=== PATIENT | female | born 2000 | race African-American/Black ===

== ENCOUNTER → 2018-06-29 08:54 | Outpatient (CLI) | payer MEDICAID, SELFPAY ==
[2018-06-29 09:24] LABS: Basophils % 0.5 % (0.1-2.0); Eosinophils # 0.2 K/mm3 (0.0-0.4); Eosinophils % 3.4 % (0.1-12.0); Hematocrit 41.8 % (37.0-47.0); Hemoglobin 14.2 g/dL (12.2-16.2); Lymphocytes # 2.2 K/mm3 (0.7-4.5); Lymphocytes % 44.2 K/mm3 (10-50); Mean Corpuscular HGB Conc 33.8 g/dL (31.8-35.4); Mean Corpuscular Hemoglobin 30.5 pg (27.0-31.2); Mean Corpuscular Volume 90.1 fl (81-99); Mean Platelet Volume 7.2 fl (7.4-10.4); Monocytes # 0.3 K/mm3 (0.1-1.0); Monocytes % 6.3 % (1.7-9.3); Neutrophils # 2.2 K/mm3 (1.8-7.8); Neutrophils % 45.6 % (37.0-80.0); Platelet Count 254 K/mm3 (142-424); Red Blood Count 4.64 M/mm3 (4.20-5.40); Red Cell Distribution Width 12.2 % (11.5-17.5); White Blood Count 4.9 K/mm3 (4.5-13.0)
[2018-06-29 11:05] LABS: Alanine Aminotransferase 16 U/L (12-78); Albumin Level 4.2 gm/dL (3.4-5.0); Albumin/Globulin Ratio 1.2 (1.1-1.8); Alkaline Phosphatase 79 U/L (46-116); Anion Gap 11.2 mEq/L (5-15); Aspartate Amino Transferase 11 U/L (15-37); Bilirubin,Total 0.3 mg/dL (0.2-1.0); Blood Urea Nitrogen 7 mg/dL (7-18); Calcium 9.3 mg/dL (8.5-10.1); Carbon Dioxide 28 mmol/L (21.0-32.0); Chloride 110 mmol/L (98-107); Creatinine,Serum 0.68 mg/dL (0.55-1.02); Estimated Glomerular Filt Rate 111 ml/min (>60); GFR (African American) 135 ML/MIN (>60); Globulin 3.4 gm/dl (1.3-3.2); Glucose 73 mg/dL (74-106); Potassium 4.2 mmoL/L (3.5-5.1); Sodium 145 mmol/L (136-145); T4 (Thyroxine) 8.1 ug/dl (5.4-10.6); Thyroid Stimulating Hormone 1.72 uIU/ml (0.516-4.13); Total Protein,Serum 7.6 gm/dL (6.4-8.2)
--- NOTE | 2018-06-29 12:35 | XR_ITS ---
XR wrist LT 2V HISTORY cyst on wrist which is increasing in size ITS.REASON: cyst on wrist ORDERING PHYSICIAN: Evon Pisano PATIENT AGE: 17 years Comparison: None FINDINGS: No fracture or dislocation. No lytic or blastic change. There is normal mineralization.. The joint spaces are well-preserved. No significant degenerative/arthritic changes. No erosive changes evident.. IMPRESSION: Negative wrist, consider MRI without and with contrast for further evaluation for soft tissue abnormality
== END ==
PROVIDERS: PCP Nurse Practitioner Family; Visit Provider Nurse Practitioner Family
DX: F32.9 Major depressive disorder, single episode, unspecified (principal); M67.439 Ganglion, unspecified wrist
CPT/HCPCS: 36415; 73100; 80053; 84436; 84443; 85025

== ENCOUNTER 2019-01-26 11:19 | Emergency (ER) | payer MEDICAID, SELFPAY ==
[2019-01-26 11:30] VITALS: BP 123/67; PULSE 57; RESP 16; TEMP 36.6; O2SAT 99; BMI 21.9
[2019-01-26 11:50] VITALS: BP 129/57; PULSE 68; O2SAT 99
--- NOTE | 2019-01-26 11:56 | CT_ITS ---
CT head/brain wo con HISTORY: . At left temporal area 2 days ago with headache and nausea ITS.REASON: head injury ORDERING PHYSICIAN: Alberto Zambrano MD PATIENT AGE: 18 years COMPARISON: No previous studies TECHNIQUE: Axial images obtained without contrast. Brain and bone windows reviewed. All CT scans at the facility use one or more dose reduction, viz: automated exposure control, ma/kV adjustment per patient size (including targeted exams where dose is matched to indication, i.e. head), or iterative reconstruction technique. FINDINGS: No acute intracranial findings. Negative CT brain/head No midline shift, mass effect, intracranial hemorrhage, hydrocephalus, or extra-axial fluid collection is evident. The posterior fossa is unremarkable.. The calvarium has an unremarkable appearance. region of the left mormon & left l temporal fossa with no significant findings by CT. The mastoid air cells are well developed and clear bilaterally. No mastoid effusion. Middle ears clear . The visualized portions of paranasal sinuses are clear. No sinus air-fluid levels.. Adenoidal hypertrophy noted on lasting room machine operator view typical of age IMPRESSION: Negative CT head without contrast. No acute finding
--- NOTE | 2019-01-26 12:04 | HMH.EDGENADL ---
ED Disposition Clinical Impression: Concussion without loss of consciousness Qualifiers: Encounter type: initial encounter Qualified Code(s): S06.0X0A - Concussion without loss of consciousness, initial encounter Disposition: Home, Self-Care Condition on Discharge: Good Instructions: DI for Concussion Additional Instructions: Ibuprofen for pain. Zofran for nausea. Additional instructions for HEAD INJURY: See your physician as soon as possible for further evaluation. Return immediately if severe headache, vomiting, problems with vision or speech, numbness or weakness of the extremities, or severe neck pain. Prescriptions: Ibuprofen [Ibuprofen 600mg Tab] 600 mg PO Q6HP PRN #20 tab PRN Reason: Moderate Pain Ondansetron [Zofran 4mg ODT] 4 mg PO TIDP PRN #10 tab.rapdis PRN Reason: Nausea And Vomiting Referrals: Umang Santiago MD [Primary Care Provider] - - Critical Care Critical Care Time: No Attestation: On , the high probability of a clinically significant, sudden or life threatening deterioration of the following system(s) required my full and direct attention, intervention and personal management. The time I documented below is in addition to time spent performing reported procedures but includes the following listed in this critical care notation. Medical Decision Making - Michael Inquiry Pt receiving controlled substance: No Vital Signs: 01/26/19 11:30 01/26/19 11:50 01/26/19 12:39 Temperature 98 F Temperature Source Oral Pulse Rate [Left Radial] 57 L 68 60 Respiratory Rate 16 Blood Pressure [Right Arm] 123/67 129/57 L 121/60 Blood Pressure Mean [Right Arm] 85 81 80 Blood Pressure Source [Right Arm] Automatic Cuff Blood Pressure Position [Right Arm] Sitting 02 Sat by Pulse Oximetry 99 99 95 Oxygen Delivery Method Room Air 01/26/19 13:00 Temperature Temperature Source Pulse Rate [Left Radial] 52 L Respiratory Rate Blood Pressure [Right Arm] 121/70 Blood Pressure Mean [Right Arm] 87 Blood Pressure Source [Right Arm] Blood Pressure Position [Right Arm] 02 Sat by Pulse Oximetry 98 Oxygen Delivery Method - CT Data CT Scan: Head Time Received: 13:[address] Reviewed: Yes: I have viewed the radiologist's interpretation Preliminary Findings: Normal/NAD General Adult HPI - General Chief complaint: Head Injury Stated complaint: AO [id number] hit in head by box ,confused Time Seen by Provider: 01/26/19 12:00 Mode of Arrival: Ambulatory Limitations: No Limitations Description of Symptoms (Recalled from ER Triage Doc. by RN): to ed per pvt car pt states 2 days ago a box fan fell off dresser hitting her head c/o pain lt temporal area and posterior neck pt states I really don't remember anything 2 days ago except getting hit in the head pt denies any LOC. +nausea, +headache pt alert and oriented x 4. cpta tylenol lastnight - History of Present Illness HPI narrative: 2 days ago a big box fell and hit her in the left mormonism. Has had headaches in that area since, but this morning the pain is more severe and it radiates through to the right side of her head as well. She feels foggy headed. It feels like a migraine, states she has had migraines about once a year, is not on any treatment for migraines. No vomiting or visual disturbance. No numbness or weakness. No neck pain. She took Tylenol for the pain. - Related Data Home Medications Medication Instructions Recorded Confirmed albuterol sulfate HFA 90 2 puff INHALATION Q6H PRN 06/28/18 07/19/18 mcg/actuation aerosol inhaler aripiprazole 2 mg tablet 2 mg PO DAILY 06/28/18 07/19/18 paroxetine 10 mg tablet 10 mg PO DAILY 06/28/18 07/19/18 trazodone 50 mg tablet 50 mg PO DAILY 06/28/18 07/19/18 Previous Rx's Medication Instructions Recorded Brompheniramine/Pseudoephed/Dm 10 ml PO QID PRN #240 ml 08/11/18 [Bromfed DM Cough Syrup 5mL] Ibuprofen [Ibuprofen 600mg Tab] 600 mg PO Q6HP PRN #20 tab 01/26/19
--- NOTE | 2019-01-26 12:07 | ED_ITS ---
ED Disposition Clinical Impression: Concussion without loss of consciousness Qualifiers: Encounter type: initial encounter Qualified Code(s): S06.0X0A - Concussion without loss of consciousness, initial encounter Disposition: Home, Self-Care Condition on Discharge: Good Instructions: DI for Concussion Additional Instructions: Ibuprofen for pain. Zofran for nausea. Additional instructions for HEAD INJURY: See your physician as soon as possible for further evaluation. Return immediately if severe headache, vomiting, problems with vision or speech, numbness or weakness of the extremities, or severe neck pain. Prescriptions: Ibuprofen [Ibuprofen 600mg Tab] 600 mg PO Q6HP PRN #20 tab PRN Reason: Moderate Pain Ondansetron [Zofran 4mg ODT] 4 mg PO TIDP PRN #10 tab.rapdis PRN Reason: Nausea And Vomiting Referrals: Umang Santiago MD [Primary Care Provider] - - Critical Care Critical Care Time: No Attestation: On , the high probability of a clinically significant, sudden or life threatening deterioration of the following system(s) required my full and direct attention, intervention and personal management. The time I documented below is in addition to time spent performing reported procedures but includes the following listed in this critical care notation. Medical Decision Making - Michael Inquiry Pt receiving controlled substance: No Vital Signs: 01/26/19 11:30 01/26/19 11:50 01/26/19 12:39 Temperature 98 F Temperature Source Oral Pulse Rate [Left Radial] 57 L 68 60 Respiratory Rate 16 Blood Pressure [Right Arm] 123/67 129/57 L 121/60 Blood Pressure Mean [Right Arm] 85 81 80 Blood Pressure Source [Right Arm] Automatic Cuff Blood Pressure Position [Right Arm] Sitting 02 Sat by Pulse Oximetry 99 99 95 Oxygen Delivery Method Room Air 01/26/19 13:00 Temperature Temperature Source Pulse Rate [Left Radial] 52 L Respiratory Rate Blood Pressure [Right Arm] 121/70 Blood Pressure Mean [Right Arm] 87 Blood Pressure Source [Right Arm] Blood Pressure Position [Right Arm] 02 Sat by Pulse Oximetry 98 Oxygen Delivery Method - CT Data CT Scan: Head Time Received: 13:[address] Reviewed: Yes: I have viewed the radiologist's interpretation Preliminary Findings: Normal/NAD General Adult HPI - General Chief complaint: Head Injury Stated complaint: AO [id number] hit in head by box ,confused Time Seen by Provider: 01/26/19 12:00 Mode of Arrival: Ambulatory Limitations: No Limitations Description of Symptoms (Recalled from ER Triage Doc. by RN): to ed per pvt car pt states 2 days ago a box fan fell off dresser hitting her head c/o pain lt temporal area and posterior neck pt states I really don't remember anything 2 days ago except getting hit in the head pt denies any LOC. +nausea, +headache pt alert and oriented x 4. cpta tylenol lastnight - History of Present Illness HPI narrative: 2 days ago a big box fell and hit her in the left holiness. Has had headaches in that area since, but this morning the pain is more severe and it radiates through to the right side of her head as well. She feels foggy headed. It feels like a migraine, states she has had migraines about once a year, is not on any treatment for migraines. No vomiting or visual disturbance. No numbness or weakness. No nec
--- NOTE | 2019-01-26 12:19 | PC.NURSE ---
pt gone to xray
--- NOTE | 2019-01-26 12:34 | PC.NURSE ---
pt back from xray
[2019-01-26 12:39] VITALS: BP 121/60; PULSE 60; O2SAT 95
[2019-01-26 13:00] VITALS: BP 121/70; PULSE 52; O2SAT 98
[2019-01-26 13:31] VITALS: BP 112/74; PULSE 78; RESP 16; TEMP 36.6; O2SAT 99
== END 2019-01-26 13:33 | disposition home or self-care (01) ==
PROVIDERS: Emergency Provider Emergency Medicine; PCP Emergency Medicine
DX: S06.0X0A Concussion without loss of consciousness, initial encounter (principal); F17.210 Nicotine dependence, cigarettes, uncomplicated; F12.10 Cannabis abuse, uncomplicated; W20.8XXA Other cause of strike by thrown, projected or falling object, initial encounter; Y92.019 Unspecified place in single-family (private) house as the place of occurrence of the external cause
CPT/HCPCS: 70450; 96372; 99283; J2405

== ENCOUNTER 2020-05-17 06:44 | Emergency (ER) | payer MEDICAID, SELFPAY ==
[2020-05-17 06:46] VITALS: BP 129/59; PULSE 72; RESP 16; TEMP 36.7; O2SAT 97; BMI 21.2
--- NOTE | 2020-05-17 07:02 | CT_ITS ---
PROCEDURE: CT ABDOMEN PELVIS W CON CLINICAL INDICATION: LLQ pain COMPARISON: No exams were available for comparison TECHNIQUE: IV Contrast: 75ML OPTIRAY 350 Oral Contrast 10ml Gastroview Axial images obtained with sagittal and coronal reformats. All CT scans at the facility use one or more dose reduction, viz: automated exposure control, ma/kV adjustment per patient size (including targeted exams where dose is matched to indication, i.e. head), or iterative reconstruction technique. FINDINGS: LOWER THORAX: There is a 4 mm subpleural nodule in the right middle lobe laterally nonspecific ABDOMEN & PELVIS: The spleen the spleen, adrenal glands, and pancreas have an unremarkable appearance. There are some mild low-density changes in the periportal region of the liver suggesting some periportal edema. There is a small hypodensity in the right hepatic lobe at 4 mm and may be due to small cyst. No radiopaque gallstones. No renal or ureteral calculi. No hydronephrosis. No intestinal obstruction or free air. No evidence of appendicitis. There is a mild amount of free fluid in the pelvis. There appears to be a 1.6 cm left ovarian cyst. No evidence of abscess or focal inflammatory change. The urinary bladder is mildly distended. No acute bony anomalies. IMPRESSION: 1. There is a mild amount of free fluid in the pelvis. There is mild distention of the urinary bladder. There is suspected 1.6 cm left ovarian cyst. 2. Nonspecific low-density changes in the periportal region of the liver which could be due to mild periportal edema. Please correlate with clinical parameters. Dictated b Dmitriy Novak MD 05/17/2020 10:12 Dmitriy Novak MD in [facility] 05/17/2020 10:12
[2020-05-17 07:09] LABS: Microscopic, Urine URINE MICROSCOPIC (MICROSCOPIC)
[2020-05-17 07:11] LABS: Appearance,Urine CLEAR (Clear); Bilirubin,Urine Negative (Negative); Blood, Urine 2+ (Negative); Color,Urine YELLOW (Yellow); Glucose,Urine (UA) Negative (Negative); Ketones,Urine Negative (Negative); Leukocyte Esterase,Urine Negative (Negative); Nitrate,Urine Negative (Negative); Protein,Urine Negative (Negative); Specific Gravity, Urine 1.025 (1.005-1.030); Urobilinogen,Urine 0.2 EU/dl (0.2)
[2020-05-17 07:13] LABS: Basophils % 0.5 % (0.1-2.0); Eosinophils # 0.2 K/mm3 (0.0-0.4); Eosinophils % 3.5 % (0.1-12.0); Hematocrit 41.4 % (37.0-47.0); Hemoglobin 14.7 g/dL (12.2-16.2); Lymphocytes # 2.2 K/mm3 (0.7-4.5); Mean Corpuscular HGB Conc 35.5 g/dL (31.8-35.4); Mean Corpuscular Volume 93.1 fl (81-99); Mean Platelet Volume 7.9 fl (7.4-10.4); Monocytes # 0.3 K/mm3 (0.1-1.0); Monocytes % 5.7 % (1.7-9.3); Neutrophils # 2.6 K/mm3 (1.8-7.8); Neutrophils % 49.4 % (37.0-80.0); Platelet Count 203 K/mm3 (142-424); Red Blood Count 4.44 M/mm3 (4.20-5.40); Red Cell Distribution Width 12.7 % (11.5-17.5); Urine Pregnancy, HCG Qual. Negative (Negative); White Blood Count 5.3 K/mm3 (4.8-10.8)
[2020-05-17 07:14] LABS: Chloride 109 mmol/L (98-107); Potassium 3.7 mmoL/L (3.5-5.1); Sodium 143 mmol/L (136-145)
[2020-05-17 07:17] LABS: Alanine Aminotransferase 11 U/L (12-78); Albumin Level 4.5 g/dl (3.5-5.0); Albumin/Globulin Ratio 1.5 (1.1-1.8); Alkaline Phosphatase 56 U/L (38-126); Amylase 72 U/L (30-110); Anion Gap 13.7 mEq/L (5-15); Aspartate Amino Transferase 22 U/L (14-36); Bilirubin,Total 0.5 mg/dl (0.2-1.3); Blood Urea Nitrogen 8 mg/dl (7-17); Calcium 9.5 mg/dl (8.4-10.2); Carbon Dioxide 24 mmol/L (22.0-30.0); Creatinine Clearance Estimated 116 mL/min (50-200); Estimated Glomerular Filt Rate 126 ml/min (>60); GFR (African American) 153 ML/MIN (>60); Glucose 96 mg/dl (74-100); Total Protein,Serum 7.5 g/dl (6.3-8.2)
[2020-05-17 07:26] LABS: Squamous Epithelial Cell,Urine Occasional #/hpf (0-5)
[2020-05-17 07:34] LABS: Lipase 61 U/L (23-300)
--- NOTE | 2020-05-17 07:35 | PC.NURSE ---
Pt finished contrast @ 0109 notified rad
[2020-05-17 07:46] VITALS: BP 117/63; PULSE 68; RESP 20; O2SAT 99
--- NOTE | 2020-05-17 08:28 | HMH.EDGENADL ---
ED Disposition Clinical Impression: Left lower quadrant abdominal pain Disposition: Home, Self-Care Condition on Discharge: Good Instructions: DI for Acute Abdomen Additional Instructions: Follow-up this week for your ultrasound. If you have any new, changing, worsening, or concerning symptoms, come back to the emergency department. Referrals: Alonzo Mabry MD [Primary Care Provider] - Time of Disposition: 08:35 - Critical Care Critical Care Time: No Attestation: On 05/17/20, the high probability of a clinically significant, sudden or life threatening deterioration of the following system(s) required my full and direct attention, intervention and personal management. The time I documented below is in addition to time spent performing reported procedures but includes the following listed in this critical care notation. Medical Decision Making - Medical Records Medical records reviewed: Yes: I reviewed the patient's medical records. MR Comment: 19-year-old female with history of possible ovarian cyst presents to the emergency department with left lower quadrant abdominal pain. He arrives to the ED hemodynamically stable, with reassuring vital signs, and looks well on exam. She was resting comfortably on my evaluation. She was previously told that she may have small ovarian cysts during her visit to [facility]. Given the history and physical, I doubt intermittent torsion, but this is considered. She has not had any vaginal bleeding or discharge, also considered. Will get labs including test and urine and CT of her abdomen pelvis and reassess. On reevaluation, patient remains well. She is continued to be pain-free during the entirety of her stay here. CT personally reviewed and read by radiology and shows a 1-1.5 centimeter cyst. Her labs are personally reviewed and nonactionable. No other worrisome signs on her CT that would warrant an ultrasound at this time I advised that she follow-up for her further evaluation. She was given strict return precautions and discharge instructions and verbalized an understanding and agreement to the plan. Safe to discharge. - Michael Inquiry Pt receiving controlled substance: No Vital Signs: 05/17/20 06:46 05/17/20 07:46 05/17/20 09:00 Temperature 98.1 F Temperature Source Oral Pulse Rate [Left Radial] 72 68 65 Respiratory Rate 16 20 17 Blood Pressure [Right Arm] 129/59 L 117/63 114/72 Blood Pressure Mean [Right Arm] 82 81 86 Blood Pressure Source [Right Arm] Automatic Cuff Automatic Cuff Blood Pressure Position [Right Arm] Sitting Sitting 02 Sat by Pulse Oximetry 97 99 100 Oxygen Delivery Method Room Air Room Air - Lab Data Lab Results 05/17/20 07:00: Urine Color Yellow, Urine Appearance Clear, Urine pH 6.0, Ur Specific [place] 1.025, Urine Protein Negative, Urine Glucose (UA) Negative, Urine Ketones Negative, Urine Blood 2+, Urine Nitrate Negative, Urine Bilirubin Negative, Urine Urobilinogen 0.2, Ur Leukocyte Esterase Negative, Urine RBC 5-10, Urine WBC 3-5, Ur Squamous Epith Cells Occasional 05/17/20 07:00: WBC 5.3, RBC 4.44, Hgb 14.7, Hct 41.4, MCV 93.1, MCH 33.0 H, MCHC 35.5 H, RDW 12.7, Plt Count 203, MPV 7.9, Neut % (Auto) 49.4, Lymph % (Auto) 41.0, [place] % (Auto) 5.7, Eos % (Auto) 3.5, Baso % (Auto) 0.5, Neut # (Auto) 2.6, Lymph # (Auto) 2.2, [place] # (Auto) 0.3, Eos # (Auto) 0.2, Baso # (Auto) 0.0 05/17/20 07:00: Urine HCG, Qual Negative 05/17/20 07:00: Sodium 143, Potassium 3.7, Chloride 109 H, Carbon Dioxide 24, Anion Gap 13.7, BUN 8, Creatinine 0.60, Estimated Creat Clear 116, Estimated GFR 126, Est GFR ( Amer) 153, Glucose 96, Calcium 9.5, Total Bilirubin 0.5, AST 22, ALT 11 L, Alkaline Phosphatase 56, Total Protein 7.5, Albumin 4.5, Globulin 3.0, Albumin/Globulin Ratio 1.5, Amylase 72 05/17/20 07:00: Lipase 61 Result diagrams: 05/17/20 07:00 05/17/20 07:00 Orders (Tests/Meds): ED MEDICATIONS Discontinued Medica
[2020-05-17 09:00] VITALS: BP 114/72; PULSE 65; RESP 17; O2SAT 100
--- NOTE | 2020-05-17 09:07 | PC.NURSE ---
Pt to CT
[2020-05-17 10:42] VITALS: BP 112/65; PULSE 69; RESP 16; TEMP 36.9; O2SAT 99
== END 2020-05-17 10:44 | disposition home or self-care (01) ==
PROVIDERS: Emergency Medicine; Emergency Provider Emergency Medicine; PCP Emergency Medicine
DX: R10.32 Left lower quadrant pain (principal); F41.8 Other specified anxiety disorders; J45.909 Unspecified asthma, uncomplicated; F17.210 Nicotine dependence, cigarettes, uncomplicated; F12.10 Cannabis abuse, uncomplicated
CPT/HCPCS: 74177; 80053; 81001; 81025; 82150; 83690; 85025; 96365; 96375; 99283; J2405; Q9967

== ENCOUNTER 2020-06-03 13:28 | Emergency (ER) | payer MEDICAID, SELFPAY ==
[2020-06-03 13:43] VITALS: BP 108/66; PULSE 60; RESP 20; TEMP 36.8; O2SAT 98; BMI 21.4
--- NOTE | 2020-06-03 14:08 | HMH.EDUTC ---
[facility] [place] Clinical Impression: Sinusitis Qualifiers: Sinusitis location: unspecified location Chronicity: acute Recurrence: non-recurrent Qualified Code(s): J01.90 - Acute sinusitis, unspecified Otitis media Qualifiers: Otitis media type: suppurative Chronicity: acute Laterality: bilateral Recurrence: non-recurrent Spontaneous tympanic membrane rupture: without spontaneous rupture Qualified Code(s): H66.003 - Acute suppurative otitis media without spontaneous rupture of ear drum, bilateral Disposition: Home, Self-Care Condition on Discharge: Good Instructions: DI for Sinusitis Additional Instructions: Drink plenty of fluids. Take tylenol or ibuprofen for pain or fever. Take the medications as directed. Follow up with your regular doctor. GO TO THE ER FOR ANY WORSENING SYMPTOMS Prescriptions: Brompheniramine/Pseudoephed/Dm [Bromfed Dm Cough Syrup] 5 ml PO Q6HP PRN #240 syrup PRN Reason: Cough Transmission Status: Received by [facility] predniSONE [Deltasone 10mg tablet] 10 mg PO BID 3 Days #6 tab Transmission Status: Received by [facility] Azithromycin [Z-Charlie 250mg Tab*] 250 mg PO UD DOSE PK #6 tab Transmission Status: Received by [facility] Referrals: Alonzo Mabry MD [Primary Care Provider] - Forms: Work/School Release Time of Disposition: 14:17 Medical Decision Making - Medical Records Medical records reviewed: No: I reviewed the patient's medical records. - Michael Inquiry Pt receiving controlled substance: No Vital Signs: 06/03/20 13:43 06/03/20 14:18 Temperature 98.2 F 98.2 F Temperature Source Oral Pulse Rate 60 Pulse Rate [Left Brachial] 60 Respiratory Rate 20 20 Blood Pressure 108/66 L Blood Pressure [Left Arm] 108/66 L Blood Pressure Mean [Left Arm] 80 Blood Pressure Source [Left Arm] Automatic Cuff Blood Pressure Position [Left Arm] Sitting 02 Sat by Pulse Oximetry 98 Oxygen Delivery Method Room Air [facility] [place] - General Stated complaint: sinus pressure ear pain Time Seen by Provider: 06/03/20 14:08 Mode of Arrival: Ambulatory Source of Information: Patient Limitations: No Limitations Description of Symptoms (Recalled from Triage Doc. by RN): PATIENT C/O SINUS PRESSURE, BILATERAL EAR PAIN AND HEADACHE X 1 WEEK HEENT Symptoms (Recalled from RN notes): Yes Resp Symptoms (Recalled from RN notes): No Skin Symptoms (Recalled from RN notes): No MS Symptoms (Recalled from RN notes): No Functional Status (Recalled from RN notes): WNL - History of Present Illness Provider Complaint: She c/o 1 week of worsening right ear pain and pressure and sinus congestion. She denies any fever or chills. She denies any known exposure to COVID-19. - Related Data Previous Rx's Medication Instructions Recorded Azithromycin [Z-Charlie 250mg Tab*] 250 mg PO UD DOSE PK #6 tab 06/03/20 Brompheniramine/Pseudoephed/Dm 5 ml PO Q6HP PRN #240 syrup 06/03/20 [Bromfed Dm Cough Syrup] predniSONE [Deltasone 10mg tablet] 10 mg PO BID 3 Days #6 tab 06/03/20 Allergies Allergy/AdvReac Type Severity Reaction Status Date / Time Penicillins [PENICILLINS] Allergy Unknown Verified 02/27/19 05:11 - Worker's Comp Is this a Worker's Comp case?: No [facility] History - Hepatitis A Screen Drug use history?: No High risk sexual behaviors?: No History of sexually transmitted infection?: No Currently employed?: No Childcare worker?: No Do you have indoor plumbing?: Yes Do you have electricity?: Yes Attestation statement:: This patient has been screened for Hepatitis A risk factors. I have reviewed the patient's past medical history: Yes Medical History: Reports:: Anxiety, Asthma, Depression Denies:: Cancer, Diabetes Mellitus Type 1, Diabetes Mellitus Type 2, MRSA Comment: ANXIETY. DEPRESSION Laterality Cases: Bilateral: Tonsillectomy Other Surgeries: Yes: EGD, Other Amputation: No Fractures: Yes (LEFT FOOT) Comment: TONSILX---2010. WISDOM TEETH REMOV
[2020-06-03 14:18] VITALS: BP 108/66; PULSE 60; RESP 20; TEMP 36.8; O2SAT 98
== END 2020-06-03 14:20 | disposition home or self-care (01) ==
PROVIDERS: Emergency Provider Nurse Practitioner Family; PCP Emergency Medicine
DX: J01.90 Acute sinusitis, unspecified (principal); H66.003 Acute suppurative otitis media without spontaneous rupture of ear drum, bilateral; F41.8 Other specified anxiety disorders; J45.909 Unspecified asthma, uncomplicated; F17.210 Nicotine dependence, cigarettes, uncomplicated; Z88.0 Allergy status to penicillin
CPT/HCPCS: 99201

== ENCOUNTER 2020-10-27 09:03 | Emergency (ER) | payer MEDICAID, SELFPAY ==
[2020-10-27 09:15] VITALS: BP 113/70; PULSE 58; RESP 14; TEMP 36.7; O2SAT 97; BMI 21.4
[2020-10-27 09:24] LABS: UTC Pregnancy Test, Urine Negative (Negative)
[2020-10-27 09:43] VITALS: BP 113/70; PULSE 58; RESP 14; TEMP 36.7; O2SAT 97
--- NOTE | 2020-10-27 09:47 | HMH.EDUTC ---
[facility] [place]ression: Negative test Disposition: Home, Self-Care Condition on Discharge: Good Instructions: Home and Clinic Tests Additional Instructions: If you do not have your period in the next week make sure to test again because you may have tested early REturn if needed Straight to ER if any life threatening symptoms Follow up with your Family doctor if needed Referrals: Alonzo Mabry MD [Primary Care Provider] - As needed Time of Disposition: 09:49 Medical Decision Making - Michael Inquiry Pt receiving controlled substance: No Michael was queried for this patient: No Vital Signs: 10/27/20 09:15 Temperature 98.1 F Temperature Source Oral Pulse Rate [Left Brachial] 58 L Respiratory Rate 14 Blood Pressure [Left Arm] 113/70 Blood Pressure Mean [Left Arm] 84 Blood Pressure Source [Left Arm] Automatic Cuff Blood Pressure Position [Left Arm] Sitting 02 Sat by Pulse Oximetry 97 Oxygen Delivery Method Room Air - Lab Data Lab Results 10/27/20 09:23: [facility]st Clinic Negative Medical Decision Narrative: Discussed with patient about blood test and she declined states that if she didnt start soon she would return for blood test [facility] [place] - General Stated complaint: test Time Seen by Provider: 10/27/20 09:47 Mode of Arrival: Ambulatory Source of Information: Patient Limitations: No Limitations Description of Symptoms (Recalled from Triage Doc. by RN): PATIENT REQUESTING TEST. LAST PERIOD WAS 09/29 HEENT Symptoms (Recalled from RN notes): No Resp Symptoms (Recalled from RN notes): No Skin Symptoms (Recalled from RN notes): No MS Symptoms (Recalled from RN notes): No Functional Status (Recalled from RN notes): WNL - History of Present Illness Provider Complaint: Bety states that she is a couple days late on her period and she took a home and thought she saw a faint line so she come in wanting a urine test - Related Data Allergies Allergy/AdvReac Type Severity Reaction Status Date / Time Penicillins [PENICILLINS] Allergy Unknown Verified 02/27/19 05:11 - Worker's Comp Is this a Worker's Comp case?: No [facility] History - Hepatitis A Screen Drug use history?: No High risk sexual behaviors?: No History of sexually transmitted infection?: No Currently employed?: No Childcare worker?: No Do you have indoor plumbing?: Yes Do you have electricity?: Yes Attestation statement:: This patient has been screened for Hepatitis A risk factors. I have reviewed the patient's past medical history: Yes Medical History: Reports:: Anxiety, Asthma, Depression Denies:: Cancer, Diabetes Mellitus Type 1, Diabetes Mellitus Type 2, MRSA Comment: ANXIETY. DEPRESSION Laterality Cases: Bilateral: Tonsillectomy Other Surgeries: Yes: EGD, Other Amputation: No Fractures: Yes (LEFT FOOT) Comment: TONSILX---2010. WISDOM TEETH REMOVAL--2016 - Social History Smoking Status: Current every day smoker Tobacco Type: cigarettes # Packs/Day (cigarettes): 1 Alcohol Intake: never Alcohol Intake Frequency:: other Substance Use Type: marijuana Occupational Status: other Housing: house - Psychiatric History Pschychiatric History:: Reports:: Anxiety, Depression Family Hx:: No significant family history MARKETING OPERATIONS COORDINATOR history: Non-contributory, No MARKETING OPERATIONS COORDINATOR history ROS Obtained: Yes All systems reviewed & no additional complaints, Yes Systems reviewed as appropriate & no additional complaints - Constitutional Constitutional: Reports system reviewed and no additional complaints, except as docu - ENT Ears, Nose, Mouth, and Throat: Reports system reviewed and no additional complaints, except as docu - Cardiovascular Cardiovascular: Reports system reviewed and no additional complaints, except as docu - Respiratory Respiratory: Reports system reviewed and no additional complaints, except as docu - Gastrointestinal Gas
== END 2020-10-27 09:48 | disposition home or self-care (01) ==
PROVIDERS: Emergency Provider Nurse Practitioner; PCP Emergency Medicine
DX: N91.2 Amenorrhea, unspecified (principal); Z32.02 Encounter for pregnancy test, result negative; F41.8 Other specified anxiety disorders; F12.10 Cannabis abuse, uncomplicated; F17.210 Nicotine dependence, cigarettes, uncomplicated
CPT/HCPCS: 81025; 99202; G0463

== ENCOUNTER 2020-11-27 16:35 | Emergency (ER) | payer MEDICAID, SELFPAY ==
[2020-11-27 16:41] VITALS: BP 108/60; PULSE 60; RESP 16; O2SAT 98; BMI 21.4
--- NOTE | 2020-11-27 17:04 | HMH.EDUTC ---
[facility] [place] Disposition Clinical Impression: Gastroenteritis Disposition: Home, Self-Care Condition on Discharge: Good Instructions: Viral Gastroenteritis, DI for Viral Gastroenteritis -- Adult, Gastroenteritis Diet Additional Instructions: Drink plenty of fluids. Take tylenol for pain or fever. Take the medications as directed for nausea. Follow up with your regular doctor. GO TO THE ER FOR ANY WORSENING SYMPTOMS Prescriptions: Ondansetron [Zofran 4mg ODT] 4 mg PO Q8HP PRN #12 tab.rapdis PRN Reason: Nausea Transmission Status: Received by [facility] Referrals: PCP,No [Primary Care Provider] - Time of Disposition: 17:11 Medical Decision Making - Medical Records Medical records reviewed: No: I reviewed the patient's medical records. - Michael Inquiry Pt receiving controlled substance: No Vital Signs: 11/27/20 16:41 11/27/20 17:17 Temperature 98.2 F Temperature Source Oral Pulse Rate 65 Pulse Rate [Right] 60 Respiratory Rate 16 16 Blood Pressure 108/62 L Blood Pressure [Left Arm] 108/60 L Blood Pressure Mean [Left Arm] 76 Blood Pressure Source Automatic Cuff Blood Pressure Position Sitting 02 Sat by Pulse Oximetry 98 Oxygen Delivery Method Room Air Room Air [facility] [place] HPI - General Stated complaint: vomiting,no eating Time Seen by Provider: 11/27/20 17:05 Mode of Arrival: Ambulatory Source of Information: Patient Limitations: No Limitations Description of Symptoms (Recalled from Triage Doc. by RN): Pt c/o nausea since yesterday and then she has vomited twice today. HEENT Symptoms (Recalled from RN notes): No Resp Symptoms (Recalled from RN notes): No Skin Symptoms (Recalled from RN notes): No MS Symptoms (Recalled from RN notes): No Functional Status (Recalled from RN notes): naq - History of Present Illness Provider Complaint: She c/o n/v/d. Her symptoms began yesterday. She denies any fever/body ache/cough. She denies that she could be and she refuses a test. - Related Data Previous Rx's Medication Instructions Recorded Ondansetron [Zofran 4mg ODT] 4 mg PO Q8HP PRN #12 tab.rapdis 11/27/20 Allergies Allergy/AdvReac Type Severity Reaction Status Date / Time Penicillins [PENICILLINS] Allergy Unknown Verified 11/27/20 16:46 - Worker's Comp Is this a Worker's Comp case?: No [facility] History - Hepatitis A Screen Drug use history?: No High risk sexual behaviors?: No History of sexually transmitted infection?: No Currently employed?: No Childcare worker?: No Do you have indoor plumbing?: Yes Do you have electricity?: Yes Attestation statement:: This patient has been screened for Hepatitis A risk factors. I have reviewed the patient's past medical history: Yes Medical History: Reports:: Anxiety, Asthma, Depression Denies:: Cancer, Diabetes Mellitus Type 1, Diabetes Mellitus Type 2, MRSA Comment: ANXIETY. DEPRESSION Laterality Cases: Bilateral: Tonsillectomy Other Surgeries: Yes: EGD, Other Amputation: No Fractures: Yes (LEFT FOOT) Comment: TONSILX---2010. WISDOM TEETH REMOVAL--2016 - Social History Smoking Status: Current every day smoker Tobacco Type: cigarettes # Packs/Day (cigarettes): 1 Alcohol Intake: never Alcohol Intake Frequency:: other Substance Use Type: marijuana Occupational Status: other Housing: house - Psychiatric History Pschychiatric History:: Reports:: Anxiety, Depression Family Hx:: No significant family history RISK CONTROL DIRECTOR history: Non-contributory, No RISK CONTROL DIRECTOR history ROS Obtained: Yes All systems reviewed & no additional complaints - Constitutional Constitutional: Denies chills, Denies fever(s) - Eyes Eyes: Denies eye discharge - ENT Ears, Nose, Mouth, and Throat: Denies dizziness, Denies otalgia, Denies sore throat - Cardiovascular Cardiovascular: Denies chest pain - Respiratory Respiratory: Denies chest congestion, Denies cough - Gastrointestinal Gastrointestingal: Reports: a
[2020-11-27 17:17] VITALS: BP 108/62; PULSE 65; RESP 16; TEMP 36.8; O2SAT 98
== END 2020-11-27 17:17 | disposition home or self-care (01) ==
PROVIDERS: Emergency Provider Nurse Practitioner Family
DX: K52.9 Noninfective gastroenteritis and colitis, unspecified (principal); F41.8 Other specified anxiety disorders; Z88.0 Allergy status to penicillin
CPT/HCPCS: 99202; G0463

== ENCOUNTER 2022-06-15 16:21 | Emergency (ER) | payer OTHER, SELFPAY ==
[2022-06-15 18:13] VITALS: BP 110/76; PULSE 67; RESP 16; TEMP 37; O2SAT 97; BMI 24.3
--- NOTE | 2022-06-15 18:23 | EXP.UTC ---
Discharge Plan Disposition Patient Disposition: Home, Self-Care Condition: Good Prescriptions Prescriptions: New ondansetron 4 mg Tablet,Disintegrating 4 mg PO Q8H PRN (Reason: Nausea) Qty: 20 0RF benzonatate [benzonatate] 100 mg capsule 100 mg PO TIDP PRN (Reason: Cough) Qty: 30 0RF ondansetron 4 mg Tablet,Disintegrating 4 mg PO Q8H PRN (Reason: Nausea) Qty: 20 0RF No Action ondansetron 4 MG tablet,disintegrating 4 mg PO Q8HP PRN (Reason: Nausea) Qty: 12 0RF Referrals Follow up/Referrals: Provider,Referral, MD [Primary Care Provider] - See instructions Activity Restrictions/Add. Instructions Additional Instructions/Restrictions: Drink plenty of fluids. Take tylenol for pain or fever. Return if you begin to have difficulty breathing. Follow up with your regular doctor. GO TO THE ER FOR ANY WORSENING SYMPTOMS Quarantine until you know the results of your covid-19 test. Notify your school or workplace of your results and follow their instructions regarding return to work/school. Clinical Impressions Clinical Impression: Exposure to 2019 novel coronavirus Stand Alone Forms Stand Alone Forms: Work/School Release Instructions Patient Instructions: Coronavirus Disease 2019, Preventing the Spread of Coronavirus Discharge Instructions Discharge ED Provider: Jason Cronin [facility] General Stated complaint: covid test, exposed Mode of Arrival: Ambulatory Source of Information: Patient Limitations: No Limitations Time Seen by Provider: 06/15/22 18:23 Description of Symptoms (Recalled from Triage Doc. by RN): pt comes in for covid test. pt having no symptoms only exposure that happened yesterday HEENT Symptoms (Recalled from RN notes): No Resp Symptoms (Recalled from RN notes): No Skin Symptoms (Recalled from RN notes): No MS Symptoms (Recalled from RN notes): No Functional Status (Recalled from RN notes): n/a History of Present Illness Provider Complaint: She is here for a covid-19 test. She denies symptoms. Her significant other tested positive for covid-19 yesterday. Related Data Previous Rx's Medication Instructions Recorded ondansetron 4 mg disintegrating 4 mg PO Q8HP PRN Nausea ##12 11/27/20 tablet benzonatate 100 mg capsule 100 mg PO TIDP PRN Cough #30 caps 06/15/22 ondansetron 4 mg disintegrating 4 mg PO Q8H PRN Nausea #20 tabs 06/15/22 tablet ondansetron 4 mg disintegrating 4 mg PO Q8H PRN Nausea #20 tabs 06/15/22 tablet Allergies Allergy/AdvReac Type Severity Reaction Status Date / Time Penicillins [PENICILLINS] Allergy Unknown Verified 06/15/22 18:21 Worker's Comp Is this a Worker's Comp case?: No PFSH PFSH Social History Smoking Status: Current every day smoker tobacco type: cigarettes packs per day: 1 alcohol intake: never substance use type: marijuana current occupational status: other Travel in the last 8 weeks: None housing: house ROS Obtained: Yes All systems reviewed & no additional complaints except as documented Constitutional Constitutional: Reports system reviewed and no additional complaints, except as documented Eyes Eyes: Reports system reviewed and no additional complaints, except as documented Cardiovascular Cardiovascular: Reports system reviewed and no additional complaints, except as documented Respiratory Respiratory: Reports system reviewed and no additional complaints, except as documented Gastrointestinal Gastrointestingal: Reports system reviewed and no additional complaints, except as documented Musculoskeletal Musculoskeletal: Reports system reviewed and no additional complaints, except as documented Integumentary/Breasts Skin/Breast: Reports system reviewed and no additional complaints, except as documented Physical Exam General General appearance: alert and in no apparent distress Head Head exam: atraumatic, normocephalic and normal inspection
[2022-06-15 19:09] VITALS: BP 110/76; PULSE 67; RESP 16; TEMP 37
== END 2022-06-15 19:10 | disposition home or self-care (01) ==
PROVIDERS: Emergency Provider Nurse Practitioner Family
DX: Z03.89 Encounter for observation for other suspected diseases and conditions ruled out (principal); R11.0 Nausea; F17.210 Nicotine dependence, cigarettes, uncomplicated; Z20.822 Contact with and (suspected) exposure to COVID-19; Z79.899 Other long term (current) drug therapy; Z88.0 Allergy status to penicillin
CPT/HCPCS: 99212; C9803; G0463; U0003; U0005

== ENCOUNTER 2022-07-06 16:02 | Emergency (ER) | payer OTHER, SELFPAY ==
[2022-07-06 16:20] VITALS: BP 109/79; PULSE 61; RESP 18; TEMP 36.8; O2SAT 98; BMI 24.4
[2022-07-06 16:23] VITALS: BMI 24.4
--- NOTE | 2022-07-06 16:37 | PC.NURSE ---
pt medicated per DEC. lights dimmed for comfort
--- NOTE | 2022-07-06 16:43 | HMH.EDGENADL ---
Discharge Plan Disposition Patient Disposition: Home, Self-Care Condition: Good Prescriptions Prescriptions: New ondansetron 4 mg Tablet,Disintegrating 4 mg PO BID PRN (Reason: Nausea) Qty: 10 0RF ibuprofen 600 mg tablet 600 mg PO TID Qty: 14 0RF No Action ondansetron 4 MG tablet,disintegrating 4 mg PO Q8HP PRN (Reason: Nausea) Qty: 12 0RF ondansetron 4 mg Tablet,Disintegrating 4 mg PO Q8H PRN (Reason: Nausea) Qty: 20 0RF benzonatate [benzonatate] 100 mg capsule 100 mg PO TIDP PRN (Reason: Cough) Qty: 30 0RF ondansetron 4 mg Tablet,Disintegrating 4 mg PO Q8H PRN (Reason: Nausea) Qty: 20 0RF Referrals Follow up/Referrals: Provider,Referral, MD [Primary Care Provider] - See instructions Clinical Impressions Clinical Impression: Migraine, Headache Instructions Patient Instructions: DI for Headache Discharge ED Provider: Alberto Archuleta General Adult HPI General Chief complaint: Headache Stated complaint: Migraine Time Seen by Provider: 07/06/22 16:05 Mode of Arrival: Ambulatory Source of Information: Patient Limitations: No Limitations Description of Symptoms (Recalled from ER Triage Doc. by RN): pt to ed c/o headache. pt states she was laying in bed yesterday and her head in the occipital region started hurting associated with nausea. pt states she has taken tylenol and nyquill with no relief. pt states she is sensitive to light. History of Present Illness HPI narrative: This is a 21-year-old female presented to the emergency department with a headache. The patient states that she does get migraines from time to time. However this was lasted longer than normal. She states that she just got over being sick recently and was feeling better, however started developing a headache. Located posterior septal region. Radiates forward into the frontal region. She taken some Tylenol without any relief. She states that she is sensitive to light. He is not having any change in vision or focal weakness. Denies any chest pain or shortness of breath. Abdominal pain or vomiting. No diarrhea. No fevers or chills. Related Data Previous Rx's Medication Instructions Recorded ondansetron 4 mg disintegrating 4 mg PO Q8HP PRN Nausea ##12 11/27/20 tablet benzonatate 100 mg capsule 100 mg PO TIDP PRN Cough #30 caps 06/15/22 ondansetron 4 mg disintegrating 4 mg PO Q8H PRN Nausea #20 tabs 06/15/22 tablet ondansetron 4 mg disintegrating 4 mg PO Q8H PRN Nausea #20 tabs 06/15/22 tablet ibuprofen 600 mg tablet 600 mg PO TID #14 tabs 07/06/22 ondansetron 4 mg disintegrating 4 mg PO BID PRN Nausea #10 tabs 07/06/22 tablet Allergies Allergy/AdvReac Type Severity Reaction Status Date / Time Penicillins [PENICILLINS] Allergy Unknown Verified 06/15/22 18:21 PFSH PFSH Social History Smoking Status: Current every day smoker tobacco type: cigarettes packs per day: 1 alcohol intake: never substance use type: marijuana current occupational status: other Travel in the last 8 weeks: None housing: house ROS Obtained: Yes All systems reviewed & no additional complaints except as documented Constitutional Constitutional: Denies fever(s) Eyes Eyes: Denies change in vision Cardiovascular Cardiovascular: Reports chest pain and Denies dyspnea Respiratory Respiratory: Denies dyspnea Gastrointestinal Gastrointestingal: Denies vomiting Integumentary/Breasts Skin/Breast: Denies rash Physical Exam General General appearance: alert and in no apparent distress Eye Eye exam: Present normal appearance, PERRL and EOMI Neck Neck exam: Present normal inspection and full ROM; Absent tenderness or meningismus Respiratory Respiratory exam: Present normal lung sounds bilaterally; Absent respiratory distress Cardiovascular Cardiovascular exam: Present regular rate and normal rhythm Abdominal Exam Abdominal exam: Present soft; Absent
[2022-07-06 17:14] VITALS: BP 100/60; BP 90/60; PULSE 55; PULSE 67; RESP 17; RESP 18; O2SAT 98
--- NOTE | 2022-07-06 17:19 | PC.NURSE ---
rounded on pt. pt reports medication has helped. requests to finish fluids to see how she feels
[2022-07-06 17:30] VITALS: BP 99/49; PULSE 53; RESP 18; O2SAT 98
--- NOTE | 2022-07-06 17:35 | PC.NURSE ---
PT FEELING MUCH BETTER , SAYS SHE CAN GO HOME AND REST NOW
[2022-07-06 17:57] VITALS: BP 100/50; PULSE 76; RESP 20; TEMP 36.8; O2SAT 99
== END 2022-07-06 17:59 | disposition home or self-care (01) ==
PROVIDERS: Emergency Provider Emergency Medicine
DX: R07.9 Chest pain, unspecified; R11.0 Nausea; F17.210 Nicotine dependence, cigarettes, uncomplicated; Z79.1 Long term (current) use of non-steroidal anti-inflammatories (NSAID); Z79.899 Other long term (current) drug therapy; Z88.0 Allergy status to penicillin
CPT/HCPCS: 96374; 96375; 99284; J2405

== ENCOUNTER → 2022-07-30 10:55 | Outpatient (CLI) | payer OTHER, SELFPAY ==
[2022-07-30 11:32] LABS: Basophils # 0.1 K/mm3 (0-0.2); Basophils % 1.3 % (0.1-2.0); Eosinophils # 0.2 K/mm3 (0.0-0.4); Hematocrit 42.7 % (37.0-47.0); Hemoglobin 14.4 g/dL (12.2-16.2); Lymphocytes # 2.1 K/mm3 (0.7-4.5); Lymphocytes % 41.2 % (10-50); Mean Corpuscular HGB Conc 33.7 g/dL (31.8-35.4); Mean Corpuscular Hemoglobin 30.9 pg (27.0-31.2); Mean Corpuscular Volume 91.5 fl (81-99); Mean Platelet Volume 8.4 fl (7.4-10.4); Monocytes # 0.3 K/mm3 (0.1-1.0); Monocytes % 6.8 % (1.7-9.3); Neutrophils # 2.4 K/mm3 (1.8-7.8); Neutrophils % 46.8 % (37.0-80.0); Platelet Count 258 K/mm3 (142-424); Red Blood Count 4.66 M/mm3 (4.20-5.40); Red Cell Distribution Width 12.3 % (11.5-17.5); White Blood Count 5.1 K/mm3 (4.8-10.8)
[2022-07-30 11:56] LABS: Chloride 105 mmol/L (98-107); Potassium 4.4 mmoL/L (3.5-5.1); Sodium 141 mmol/L (136-145)
[2022-07-30 11:59] LABS: Alanine Aminotransferase 11 U/L (12-78); Albumin Level 4.7 g/dl (3.5-5.0); Albumin/Globulin Ratio 1.6 (1.1-1.8); Alkaline Phosphatase 70 U/L (38-126); Anion Gap 14.4 mEq/L (5-15); Aspartate Amino Transferase 23 U/L (14-36); Bilirubin,Total 0.3 mg/dl (0.2-1.3); Blood Urea Nitrogen 8 mg/dl (7-17); Calcium 9.4 mg/dl (8.4-10.2); Carbon Dioxide 26 mmol/L (22.0-30.0); Cholesterol 192 mg/dl (140-200); Estimated Glomerular Filt Rate 103 ml/min (>60); GFR (African American) 124 ML/MIN (>60); Globulin 2.9 g/dL (1.3-3.2); Glucose 94 mg/dl (74-100); Iron 109 ug/dL (37-170); Total Protein,Serum 7.6 g/dl (6.3-8.2); Triglycerides 86 mg/dl (30-150); VLDL Cholesterol 17 mg/dL (0-40)
[2022-07-30 12:00] LABS: Chol/HDL Ratio 3.4 (1-3.5); HDL Cholesterol 56 mg/dl (40-60)
[2022-07-30 12:11] LABS: Direct LDL Cholesterol 97.33 mg/dL (100-129)
[2022-07-30 12:34] LABS: Thyroid Stimulating Hormone 1.05 uIU/mL (0.465-4.68)
[2022-07-30 12:55] LABS: Total Iron Binding Capacity 163 ug/dL (265-497)
[2022-07-30 13:01] LABS: Hemoglobin A1C 4.8 % (4.0-6.0)
[2022-07-30 13:05] LABS: 25-OH Vitamin D, Total 21.4 ng/mL (30-100)
[2022-07-30 13:53] LABS: Vitamin B12 542 pg/mL (239-931)
[2022-07-31 10:10] LABS: Triiodothyronine (T3) Total 120 ng/dL (71-180)
== END ==
PROVIDERS: PCP Family Medicine Addiction Medicine; Visit Provider Family Medicine Addiction Medicine
DX: Z01.89 Encounter for other specified special examinations (principal)
CPT/HCPCS: 36415; 80053; 80061; 82306; 82607; 82728; 82746; 83036; 83540; 83550; 84436; 84443; 84480; 85025

== ENCOUNTER → 2022-08-11 11:45 | Outpatient (CLI) | payer OTHER, SELFPAY ==
[2022-08-11 12:43] LABS: Bilirubin,Unconjugated 0.3 mg/dL (0.0-1.1)
[2022-08-11 12:44] LABS: Alanine Aminotransferase 11 U/L (12-78); Albumin Level 4.5 g/dl (3.5-5.0); Alkaline Phosphatase 71 U/L (38-126); Aspartate Amino Transferase 22 U/L (14-36); Bilirubin,Direct 0.1 mg/dl (0.0-0.4); Bilirubin,Indirect 0.3 mg/dL (0.0-0.9); Bilirubin,Total 0.4 mg/dl (0.2-1.3); Iron 97 ug/dL (37-170); Total Protein,Serum 7.2 g/dl (6.3-8.2)
[2022-08-11 12:53] LABS: Total Iron Binding Capacity 166 ug/dL (265-497)
[2022-08-11 14:39] LABS: Ferritin 12.8 ng/ml (6.24-137)
== END ==
PROVIDERS: PCP Family Medicine Addiction Medicine; Visit Provider Family Medicine Addiction Medicine
DX: E83.119 Hemochromatosis, unspecified (principal)
CPT/HCPCS: 36415; 80076; 82728; 83540; 83550

== ENCOUNTER 2022-10-29 13:52 | Emergency (ER) | payer OTHER, SELFPAY ==
[2022-10-29 15:05] VITALS: BP 113/79; PULSE 74; RESP 18; TEMP 37; O2SAT 98; BMI 25.2
[2022-10-29 15:20] LABS: Apearance,Urine Clear (Clear); Bilirubin,Urine Negative (Negative); Blood, Urine Negative (Negative); Color,Urine Orange (Yellow); Glucose,Urine (UA) 100 (Negative); Ketones,Urine Negative (Negative); Protein,Urine 1+ (Negative); Specific Gravity, Urine 1.015 (1.005-1.030); UTC Leukocyte Esterase,Urine Trace (Negative); UTC Nitrate,Urine Positive (Negative); Urobilinogen,Urine 1 EU/dl (0.2)
[2022-10-29 15:22] VITALS: BP 113/79; PULSE 74; RESP 18; TEMP 37; O2SAT 98
--- NOTE | 2022-10-29 15:25 | EXP.UTC ---
Discharge Plan Disposition Patient Disposition: Home, Self-Care Condition: Good Prescriptions Prescriptions: New sulfamethoxazole-trimethoprim [Bactrim DS] 800-160 mg tablet 1 tab PO BID Qty: 20 0RF phenazopyridine [Pyridium] 200 mg tablet 200 mg PO Q8H 2 Days Qty: 6 0RF No Action latanoprost 0.005 % drops 1 drp Eye-Both HS lamotrigine 25 mg Tablet 25 mg PO BID Referrals Follow up/Referrals: Karin Driver APRN [Primary Care Provider] - See instructions Activity Restrictions/Add. Instructions Additional Instructions/Restrictions: *Increase fluids. Water not Soda or Tea *Start antibiotic immediately and be sure to take as ordered for the FULL length of time although you should start to see improvement over the next 48 hours *Pyridium as needed Remember this medication will turn your urine . This is normal but it will stain what ever it gets on *You should not use Pyridium for more than 48 hours. If so , follow up with your primary physician to review urine culture and ensure that antibiotic is adequate for infection DO NOT TAKE AZO WITH PYRIDIUM *Be SURE to follow up anytime for new or worsening symptoms with your family doctor. AND in 48 hours for urine culture results with your family doctor, if you do not have a doctor then you may call back to the [facility] for urine culture results and further treatment. We do recommend that you choose and establish care with a Primary Care Physician. ?AND follow up with them ?in 10-14 days to repeat UA to ensure infection is resolved and blood no longer present *Be sure to let your PCP know that we sent urine cultures from the [facility] so they can follow up to ensure that you area the on the correct antibiotic Call your doctor office and make appointment for 48 hours (2 days from today) ?to follow up and get the results of your urine culture and further treatment Clinical Impressions Clinical Impression: UTI (urinary tract infection) Stand Alone Forms Stand Alone Forms: Work/School Release Instructions Patient Instructions: DI for Urinary Tract Infection (UTI), Urinary Tract Infection, Trimethoprim/Sulfamethoxazole (Alternative Therapy) Discharge ED Provider: Mena Duong [facility] H[place] General Stated complaint: ray when urinatation,vomiting Mode of Arrival: Ambulatory Source of Information: Patient Limitations: No Limitations Time Seen by Provider: 10/29/22 15:25 Description of Symptoms (Recalled from Triage Doc. by RN): PATIENT C/O VOMITING AND POSSIBLE UTI X 4 DAYS HEENT Symptoms (Recalled from RN notes): No Resp Symptoms (Recalled from RN notes): No Skin Symptoms (Recalled from RN notes): No MS Symptoms (Recalled from RN notes): No Functional Status (Recalled from RN notes): WNL History of Present Illness Provider Complaint: Patient states that she has been having burning with urination for about 4 days States that she has been taking over the counter AZO states that she took it this morning and it made her sick at her stomach and she vomited x 2 and not vomited since denies fever denies abdominal pain Related Data Home Medications Medication Instructions Recorded Confirmed lamotrigine 25 mg tablet 25 mg PO BID MOOD STABILIZER 10/29/22 10/29/22 latanoprost 0.005 % eye drops 1 drp Eye-Both HS EYE PRESSURE 10/29/22 10/29/22 Previous Rx's Medication Instructions Recorded phenazopyridine 200 mg tablet 200 mg PO Q8H pain 2 days #6 tabs 10/29/22 (Pyridium) sulfamethoxazole 800 1 tab PO BID #20 tabs 10/29/22 mg-trimethoprim 160 mg tablet (Bactrim DS) Allergies Allergy/AdvReac Type Severity Reaction Status Date / Time Penicillins [PENICILLINS] Allergy Unknown Verified 06/15/22 18:21 Worker's Comp Is this a Worker's Comp case?: No [facility] Disclaimer: The information contained in this section may have been updated after the patient was seen, as this information can be updated by other users. Medical History (Updated 10/29/22 @ 15:
== END 2022-10-29 15:45 | disposition home or self-care (01) ==
PROVIDERS: Emergency Provider Nurse Practitioner; PCP Family Medicine Addiction Medicine
DX: N39.0 Urinary tract infection, site not specified (principal)
CPT/HCPCS: 81003; 87086; 87088; 87186; 99212; 99213; G0463